=== PATIENT | male | born 2000 | race Caucasian/White ===

== ENCOUNTER 2021-10-29 21:44 | Emergency (ER) | payer MEDICAID, OTHER ==
[~2021-10-29] VITALS: Ht 170.2 cm; Wt 54.2 kg
[2021-10-29] MEDS ORDERED: SODIUM CHLORIDE 0.9% 1,000 ML IV ONE (22:30)
[2021-10-29] MEDS ORDERED: ACETAMINOPHEN 325MG TABLET PO ONE (22:45)
[2021-10-29] MEDS ORDERED: LORAZEPAM 2MG/ML CPJ IV ONE (22:45)
[2021-10-29 22:53] LABS: CHLORIDE 103 mEq/L (98-107)
[2021-10-29 22:57] LABS: ETHANOL BLOOD < 10 mg/dL
[2021-10-29 23:29] LABS: BASOPHILS % 0.7 % (0.0-2.0); EOSINOPHILS % 1.5 % (0.0-5.0); HEMATOCRIT. 42.1 % (42.0-52.0); HEMOGLOBIN. 14.1 g/dL (14.0-18.0); LYMPHOCYTES % 12.8 % (20.0-50.0); MEAN CORPUSCULAR HEMOGLOBIN 30.7 pg (28.0-32.0); MEAN CORPUSCULAR VOLUME 91.4 fL (80.0-94.0); MEAN PLATELET VOLUME 11.1 fl (7.4-10.4); MONOCYTES % 7.5 % (2.0-8.0); NEUTROPHILS % 77.5 % (40.0-76.0); PLATELET 163 x1000/uL (130-400); RED CELL DISTRIBUTION WIDTH 12.6 % (11.6-14.6)
[2021-10-30] MEDS ORDERED: SODIUM CHLORIDE 0.9% 1,000 ML IV ONE (00:30)
[2021-10-30 01:26] LABS: CLARITY URINE CLEAR (CLEAR); COLOR URINE YELLOW (YELLOW); KETONES URINE NEGATIVE (NEGATIVE); LEUKOCYTE ESTERASE URINE NEGATIVE (NEGATIVE); NITRITE URINE NEGATIVE (NEGATIVE); OCCULT BLOOD URINE NEGATIVE (NEGATIVE); PROTEIN URINE NEGATIVE (NEGATIVE); SPECIFIC GRAVITY URINE 1.006 (1.005-1.030); UROBILINOGEN URINE 0.2 E.U./dL (0.2-1.0)
[2021-10-30 02:02] LABS: *BENZODIAZEPINES SCREEN URINE NEGATIVE (NEGATIVE); *COCAINE SCREEN URINE NEGATIVE (NEGATIVE); METHADONE URINE SCREEN NEGATIVE (NEGATIVE)
[2021-10-30 02:03] LABS: *AMPHETAMINES SCREEN URINE NEGATIVE (NEGATIVE); *BARBITURATES SCREEN URINE NEGATIVE (NEGATIVE); CANNABINOID URINE SCREEN PRESUMTIVE POSITIVE (NEGATIVE); OPIATES URINE SCREEN NEGATIVE (NEGATIVE); PHENCYCLIDINE URINE SCREEN NEGATIVE (NEGATIVE)
[2021-10-30 03:30] VITALS: BP 94/49
== END 2021-10-30 04:18 | disposition home or self-care (01) ==
LOC: ER 21:44
DX: R51.9 Headache, unspecified (principal); F12.929 Cannabis use, unspecified with intoxication, unspecified
CPT/HCPCS: 36415; 71045; 80053; 80305; 80320; 81003; 83690; 85025; 96361; 96374; 99284; J2060; J7030; G0480